=== PATIENT | male | born 1995 | race Caucasian/White ===

== ENCOUNTER 2018-09-14 15:47 | Emergency (ER) | payer BC ==
[~2018-09-14] VITALS: Ht 185.4 cm; Wt 88.6 kg
[2018-09-14 15:59] VITALS: BP 148/80; PULSE 95; TEMP 99
== END 2018-09-14 16:38 | disposition home or self-care (01) ==
LOC: COL.ER 15:47
DX: H93.8X1 Other specified disorders of right ear (principal)

== ENCOUNTER 2021-02-02 01:26 | Emergency (ER) | payer BC ==
[~2021-02-02] VITALS: Ht 185.4 cm; Wt 93.2 kg
[2021-02-02 02:24] VITALS: BP 159/80; PULSE 84; TEMP 98.5
== END 2021-02-02 02:21 | disposition home or self-care (01) ==
LOC: COL.ER 01:26
DX: S61.412A Laceration without foreign body of left hand, initial encounter (principal); W26.0XXA Contact with knife, initial encounter

== ENCOUNTER → 2021-02-09 | Outpatient (CLI) | payer BC ==
[2021-02-09 17:10] VITALS: BP 136/85; PULSE 79; TEMP 98.1
== END ==
LOC: COL.ER 16:41
DX: Z48.02 Encounter for removal of sutures (principal)